=== PATIENT | male | born 1980 | race Caucasian/White ===

== ENCOUNTER 2017-02-22 11:41 | Emergency (ER) | payer OTHER ==
[~2017-02-22] VITALS: Ht 193 cm; Wt 108.9 kg
[2017-02-22 11:50] VITALS: BP 142/81
[2017-02-22] MEDS ORDERED: TEGRETOL100 MG/5 M PO (12:00)
[2017-02-22] MEDS ORDERED: AMITRIPTYLINE H25 M2 PO (12:21)
[2017-02-22] MEDS ORDERED: EXCEDRIN CAPLE1 EACH PO (12:21)
[2017-02-22] MEDS ORDERED: KEPPRA 500 MG500 MG PO (15:17)
== END 2017-02-22 12:25 ==
LOC: M.ERS 11:41
DX: G40.909 Epilepsy, unspecified, not intractable, without status epilepticus (principal); R51 Headache; F17.210 Nicotine dependence, cigarettes, uncomplicated

== ENCOUNTER 2017-02-22 12:56 | Emergency (ER) | payer OTHER ==
[~2017-02-22] VITALS: Ht 193 cm; Wt 108.9 kg
[~2017-02-22 12:56] MED LIST: AMITRIPTYLINE H25 M2 PO; EXCEDRIN CAPLE1 EACH PO; TEGRETOL100 MG/5 M PO
[2017-02-22 14:01] LABS: HEMOGLOBIN 15.8 gm/dL (14.0-18.0)
[2017-02-22 14:03] LABS: ABSOLUTE LYMPHOCYTES 2.4 thou/uL (0.8-5.3); ABSOLUTE NEUTROPHILS 6.9 thou/uL (1.6-8.1)
[2017-02-22 14:05] LABS: CALCIUM 9.2 mg/dL (8.5-10.1); CREATININE 1.2 mg/dL (0.6-1.3)
[2017-02-22 14:10] LABS: ALBUMIN 3.8 g/dL (3.4-5.0); TOTAL BILIRUBIN 0.9 mg/dL (<0.1-1.0)
[2017-02-22 14:11] LABS: ABSOLUTE BASOPHILS 0.1 thou/uL (0.0-0.2); ABSOLUTE EOSINOPHILS 0.1 thou/uL (0.0-0.7); ABSOLUTE MONOCYTES 0.7 thou/uL (0.0-1.2); BASOPHILS 0.8 %; EOSINOPHILS 0.6 %; HEMATOCRIT 47.4 % (42.0-52.0); MCH 29.3 pg (26.0-34.0); MCHC 33.3 g/dL (28.0-37.0); MCV 87.8 fL (80.0-100.0); MONOCYTES 6.5 %; MPV 8.7 fl. (7.2-11.1); NUCLEATED RBCS 0 /100WBC; PLATELET COUNT* 250 thou/uL (150-400); POLYS 68.1 %; RBC 5.39 mil/uL (4.50-6.00); WBC 10.1 thou/uL (4.0-11.0)
[2017-02-22] MEDS ORDERED: KEPPRA 500 MG500 MG PO (15:17)
[2017-02-22 15:31] VITALS: BP 115/77
== END 2017-02-22 15:31 | disposition home or self-care (01) ==
LOC: M.ERS 12:56
PROVIDERS: Personal Emergency Response Attendant
DX: G40.909 Epilepsy, unspecified, not intractable, without status epilepticus (principal); F17.210 Nicotine dependence, cigarettes, uncomplicated

== ENCOUNTER 2019-08-16 07:23 | Emergency (ER) | payer OTHER ==
[~2019-08-16] VITALS: Ht 193 cm; Wt 120.2 kg
[~2019-08-16 07:23] MED LIST changes: +KEPPRA 500 MG500 MG PO
[2019-08-16] MEDS ORDERED: NEURONTIN100 MG PO (07:39)
[2019-08-16 08:28] LABS: URINE BILIRUBIN NEGATIVE (Negative); URINE BLOOD NEGATIVE (Negative); URINE CLARITY CLEAR; URINE COLOR YELLOW; URINE GLUCOSE-RANDOM NEGATIVE (Negative); URINE KETONES NEGATIVE (Negative); URINE LEUKOCYTES-REFLEX NEGATIVE (Negative); URINE NITRITE-REFLEX NEGATIVE (Negative); URINE PROTEIN NEGATIVE (Negative); URINE SPECIFIC GRAVITY 1.025 (1.005-1.030); URINE UROBILINOGEN 0.2 E.U./dl (0.2-1.0)
[2019-08-16 08:33] LABS: ABSOLUTE BASOPHILS 0.1 thou/uL (0.0-0.2); ABSOLUTE EOSINOPHILS 0.2 thou/uL (0.0-0.7); ABSOLUTE LYMPHOCYTES 2.2 thou/uL (0.8-5.3); ABSOLUTE MONOCYTES 1.4 thou/uL (0.0-1.2); ABSOLUTE NEUTROPHILS 12.2 thou/uL (1.6-8.1); BASOPHILS 0.8 %; EOSINOPHILS 1.4 %; HEMATOCRIT 42.6 % (42.0-52.0); HEMOGLOBIN 14.6 gm/dL (14.0-18.0); LYMPHOCYTES 13.9 %; MCH 29.2 pg (26.0-34.0); MCHC 34.3 g/dL (28.0-37.0); MCV 85.3 fL (80.0-100.0); MONOCYTES 8.4 %; MPV 7.8 fl. (7.2-11.1); NUCLEATED RBCS 0 /100WBC; PLATELET COUNT* 317 thou/uL (150-400); POLYS 75.5 %; RBC 4.99 mil/uL (4.50-6.00); RDW-CV 13.5 % (10.5-14.5); WBC 16.2 thou/uL (4.0-11.0)
[2019-08-16 09:14] LABS: CALCIUM 8.7 mg/dL (8.5-10.1); CREATININE 1.3 mg/dL (0.6-1.3); POTASSIUM 3.9 mmol/L (3.5-5.1)
[2019-08-16 09:18] LABS: ALBUMIN 3.1 g/dL (3.4-5.0); TOTAL BILIRUBIN 0.4 mg/dL (<0.1-1.0); TOTAL PROTEIN 7.5 g/dL (6.4-8.2)
--- NOTE | 2019-08-16 10:46 | EKG ---
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: : 1980 Requested By: Rafael Clark Order Number: [id number] MD: Carlos Angulo Measurements Intervals [place] Rate: 82 P: 40 SC: 155 QRS: 63 QRSD: 103 T: 1 QT: 348 QTc: 407 Interpretive Statements Sinus rhythm ST elev, probable normal early repol pattern Baseline wander in lead(s) II,III,aVF,V3,V4 No previous ECG available for comparison Electronically Signed On 08-16-2019 10:46:08 CDT by Carlos Angulo [email or web address] <ELECTRONICALLY SIGNED> By: Carlos Angulo MD, [facility] 08/16/19 1046 0804 0804 Carlos Angulo MD, [facility] /EPI
[2019-08-16] MEDS ORDERED: NORCO 5-325 TA1 EAC1 PO (11:39)
[2019-08-16 11:53] VITALS: BP 128/93
== END 2019-08-16 11:54 | disposition home or self-care (01) ==
LOC: M.ERS 07:23
PROVIDERS: Emergency Medicine
DX: K61.1 Rectal abscess (principal); F17.210 Nicotine dependence, cigarettes, uncomplicated

== ENCOUNTER 2019-10-12 22:35 | Emergency (ER) | payer OTHER ==
[~2019-10-12] VITALS: Ht 193 cm; Wt 113.4 kg
[~2019-10-12 22:35] MED LIST changes: +NEURONTIN100 MG PO; +NORCO 5-325 TA1 EAC1 PO
[2019-10-12] MEDS ORDERED: LORCET 5-325 M1 EACH PO (22:53)
[2019-10-12] MEDS ORDERED: BACTRIM DS TAB1 EAC1 PO (22:53)
[2019-10-12] MEDS ORDERED: ONDANSETRON HCL4 M3 PO (22:54)
[2019-10-12 23:28] LABS: URINE BLOOD NEGATIVE (Negative); URINE CLARITY CLEAR; URINE COLOR YELLOW; URINE GLUCOSE-RANDOM NEGATIVE (Negative); URINE KETONES TRACE (Negative); URINE LEUKOCYTES NEGATIVE (Negative); URINE NITRITE NEGATIVE (Negative); URINE PROTEIN TRACE (Negative); URINE SPECIFIC GRAVITY >= 1.030 (1.005-1.030)
[2019-10-12 23:30] LABS: ICTOTEST (BILI CONFIRMATORY) Positive (Negative); URINE BILIRUBIN 2+ (Negative)
[2019-10-12 23:37] LABS: AMP/METHAMP Negative (Negative); BARBITURATES Negative (Negative); BENZODIAZEPINES Negative (Negative); COCAINE Negative (Negative); METHADONE Negative (Negative); OPIATES Negative (Negative); PCP Negative (Negative); THC POSITIVE (Negative)
[2019-10-13 00:24] LABS: HEMOGLOBIN 16.6 gm/dL (14.0-18.0); MCH 29.1 pg (26.0-34.0); MCHC 34.5 g/dL (28.0-37.0); MCV 84.4 fL (80.0-100.0); MPV 8.2 fl. (7.2-11.1); RBC 5.68 mil/uL (4.50-6.00); WBC 12.3 thou/uL (4.0-11.0)
[2019-10-13 00:34] LABS: CALCIUM 9.3 mg/dL (8.5-10.1); CREATININE 1.9 mg/dL (0.6-1.3); POTASSIUM 3.8 mmol/L (3.5-5.1)
[2019-10-13 00:39] LABS: ALBUMIN 3.8 g/dL (3.4-5.0); TOTAL BILIRUBIN 0.8 mg/dL (<0.1-1.0); TOTAL PROTEIN 8.2 g/dL (6.4-8.2)
[2019-10-13 00:44] LABS: ALCOHOL < 10 mg/dL (<10); SALICYLATE < 2.8 mg/dL (2.8-20.0)
[2019-10-13 00:53] LABS: ACETAMINOPHEN < 2 ug/mL (10-30)
[2019-10-13 06:40] VITALS: BP 117/75
--- NOTE | 2019-10-13 16:44 | EKG ---
[place] [address] ELECTROCARDIOGRAM REPORT Name: BISMARK NELSON Room: 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 : 1980 Requested By: Galina Zamora Order Number: [id number] MD: Carlos Angulo Measurements Intervals [place] Rate: 80 P: 43 MO: 159 QRS: 68 QRSD: 108 T: -11 QT: 378 QTc: 436 Interpretive Statements Sinus rhythm Probable left ventricular hypertrophy Inferior infarct, age indeterminate Compared to ECG 08/16/2019 08:04:48 no change Electronically Signed On 10-13-2019 16:44:22 CDT by Carlos Angulo [email or web address] <ELECTRONICALLY SIGNED> By: Carlos Angulo MD, [facility] 10/13/19 1644 001 0011 Carlos Angulo MD, [facility] /EPI
== END 2019-10-13 06:40 | disposition home or self-care (01) ==
LOC: M.ERS 22:35
PROVIDERS: Personal Emergency Response Attendant
DX: G40.909 Epilepsy, unspecified, not intractable, without status epilepticus (principal); M25.551 Pain in right hip; F17.210 Nicotine dependence, cigarettes, uncomplicated

== ENCOUNTER 2020-08-26 16:57 | Emergency (ER) | payer OTHER ==
[~2020-08-26] VITALS: Ht 193 cm; Wt 122.5 kg
[~2020-08-26 16:57] MED LIST changes: +BACTRIM DS TAB1 EAC1 PO; +LORCET 5-325 M1 EACH PO; +ONDANSETRON HCL4 M3 PO
[2020-08-26] MEDS ORDERED: AMOXICILLIN 50500 MG PO (17:27)
[2020-08-26] MEDS ORDERED: HYDROCODON-ACE1 EAC7 PO (17:27)
[2020-08-26 17:53] VITALS: BP 185/100
== END 2020-08-26 17:56 | disposition home or self-care (01) ==
LOC: M.ERS 16:57
DX: K04.7 Periapical abscess without sinus (principal); K02.9 Dental caries, unspecified; F17.210 Nicotine dependence, cigarettes, uncomplicated

== ENCOUNTER 2020-11-22 20:40 | Emergency (ER) | payer OTHER ==
[~2020-11-22] VITALS: Ht 193 cm; Wt 113.4 kg
[~2020-11-22 20:40] MED LIST changes: +AMOXICILLIN 50500 MG PO; +HYDROCODON-ACE1 EAC7 PO
[2020-11-22 21:16] LABS: URINE BILIRUBIN NEGATIVE (Negative); URINE BLOOD NEGATIVE (Negative); URINE CLARITY CLEAR; URINE COLOR YELLOW; URINE GLUCOSE-RANDOM NEGATIVE (Negative); URINE KETONES NEGATIVE (Negative); URINE LEUKOCYTES-REFLEX NEGATIVE (Negative); URINE NITRITE-REFLEX NEGATIVE (Negative); URINE PROTEIN TRACE (Negative); URINE SPECIFIC GRAVITY 1.015 (1.005-1.030); URINE UROBILINOGEN 0.2 E.U./dl (0.2-1.0)
[2020-11-22 21:24] LABS: ABSOLUTE BASOPHILS 0.1 thou/uL (0.0-0.2); ABSOLUTE EOSINOPHILS 0.1 thou/uL (0.0-0.7); ABSOLUTE LYMPHOCYTES 2.4 thou/uL (0.8-5.3); ABSOLUTE NEUTROPHILS 14.3 thou/uL (1.6-8.1); BASOPHILS 0.8 %; EOSINOPHILS 0.4 %; HEMOGLOBIN 15.8 gm/dL (14.0-18.0); LYMPHOCYTES 13.3 %; MCH 28.4 pg (26.0-34.0); MCHC 33.6 g/dL (28.0-37.0); MCV 84.6 fL (80.0-100.0); MONOCYTES 5.7 %; MPV 7.9 fl. (7.2-11.1); NUCLEATED RBCS 0 /100WBC; PLATELET COUNT* 320 thou/uL (150-400); POLYS 79.8 %; RBC 5.55 mil/uL (4.50-6.00); RDW-CV 14.6 % (10.5-14.5); WBC 17.9 thou/uL (4.0-11.0)
[2020-11-22 21:24] LABS: AMP/METHAMP Negative (Negative); BARBITURATES Negative (Negative); BENZODIAZEPINES Negative (Negative); COCAINE Negative (Negative); METHADONE Negative (Negative); OPIATES Negative (Negative); PCP Negative (Negative); THC POSITIVE (Negative)
[2020-11-22 21:33] LABS: CALCIUM 9.2 mg/dL (8.5-10.1); CREATININE 1.4 mg/dL (0.6-1.3); POTASSIUM 3.9 mmol/L (3.5-5.1)
[2020-11-22 21:37] LABS: ALBUMIN 3.9 g/dL (3.4-5.0); TOTAL BILIRUBIN 0.6 mg/dL (<0.1-1.0); TOTAL PROTEIN 8.5 g/dL (6.4-8.2)
[2020-11-23 00:48] VITALS: BP 122/54
== END 2020-11-23 00:50 ==
LOC: M.ERS 20:40
PROVIDERS: Nurse Practitioner Family
DX: G40.909 Epilepsy, unspecified, not intractable, without status epilepticus (principal); F17.210 Nicotine dependence, cigarettes, uncomplicated